=== PATIENT | female | born 1960 | race African-American/Black ===

== ENCOUNTER 2024-08-24 13:23 | Emergency (ER) | payer MEDICARE, OTHER ==
[~2024-08-24] VITALS: Ht 165.1 cm; Wt 100.0 kg
[2024-08-24 13:30] VITALS: O2SAT 97
[2024-08-24] MEDS: LIDOCAINE HCL/EPINEPHRINE 1%-EPI 1:100,000 20ML VIAL INFIL ONE (15:00)
[2024-08-24] MEDS: BACITRACIN ZINC OINT UDPKT TOP ONE (15:00)
[2024-08-24] MEDS: HYDROCODONE/ACETAMINOPHEN 5/325MG TABLET PO ONE (15:14)
[2024-08-24] MEDS: TETANUS, DIPHTHERIA, PERTUSSIS VAC/PF 0.5ML (>10YR OLD) IM ONE (15:15)
[2024-08-24] MEDS ORDERED: ACET-2708 MT (18:23)
[2024-08-24 19:10] VITALS: BP 140/83; PULSE 65; RESP 14; TEMP 36.7; O2SAT 97
== END 2024-08-24 19:33 | disposition home or self-care (01) ==
LOC: ER 13:23
DX: S81.012A Laceration without foreign body, left knee, initial encounter (principal); E78.00 Pure hypercholesterolemia, unspecified; I11.0 Hypertensive heart disease with heart failure; I50.9 Heart failure, unspecified; M17.11 Unilateral primary osteoarthritis, right knee; F10.90 Alcohol use, unspecified, uncomplicated; Z88.1 Allergy status to other antibiotic agents; Z79.899 Other long term (current) drug therapy; Y90.9 Presence of alcohol in blood, level not specified
CPT/HCPCS: 99284; 73562; 73564; 90715; 12004; 90471; J2004; A6449; A4606